=== PATIENT | female | born 1970 | race Caucasian/White ===

== ENCOUNTER 2022-06-21 11:28 | Outpatient (REF) | payer OTHER, SELFPAY ==
[2022-06-21 13:13] LABS: MANUAL DIFF FLAG NO
[2022-06-21 13:28] LABS: Basophils Absolute Auto 0.1 X10*3/uL (0.0-0.2); Basophils Percent Auto 0.8 % (0-2); Eosinophils Absolute Auto 0.1 X10*3/uL (0.0-0.4); Eosinophils Percent Auto 1.7 % (0-4); Hematocrit 44.4 % (37.0-47.0); Imm Gran Abs Auto 0.02 X10*3/uL (0.00-0.03); Imm Gran Pct Auto 0.3 % (0.0-0.4); Lymphocytes Absolute Auto 1.7 X10*3/uL (1.2-4.9); Lymphocytes Percent Auto 29.3 % (20-40); Mean Corpuscular HGB Conc 33.8 g/dl (31.0-35.0); Mean Corpuscular Hemoglobin 28.7 pg (27.0-33.0); Mean Corpuscular Volume 85.1 fL (80.0-98.0); Mean Platelet Volume 9.3 fL (9.4-12.3); Monocytes Absolute Auto 0.4 X10*3/uL (0.1-1.2); Monocytes Percent Auto 6.3 % (2-11); Neutrophils Absolute Auto 3.6 x10*3/uL (2.0-8.3); Neutrophils Percent Auto 61.6 % (45-73); Platelet Count 250 X10*3/uL (160-400); Red Blood Count 5.22 X10*6/uL (4.20-5.50); Red Cell Distribution Width 12.6 % (11.0-16.0); White Blood Count 5.9 X10*3/uL (4.8-10.8)
[2022-06-21 13:30] LABS: Appearance Urine Clear; Color Urine Yellow; Glucose Urine UA Negative (Negative); Leukocyte Esterase Urine Negative (Negative); Nitrite Urine Negative (Negative); PH 5.5 (5.0-8.0); Specific Gravity - Urine >= 1.030 (1.005-1.025); Urine Blood Negative (Negative); Urine Ketones Negative (Negative); Urine Protein Negative (Neg-Trace)
[2022-06-21 13:43] LABS: Alanine Aminotransferase 28 U/L (0-31); Albumin Level 4.6 g/dL (3.5-5.0); Alkaline Phosphatase 73 U/L (39-117); Anion Gap 19 (12-20); Aspartate Amino Transferase 29 U/L (5-31); Bilirubin Total 0.6 mg/dL (0.0-1.0); Blood Urea Nitrogen 15 mg/dL (9-16); C Reactive Protein 0.11 mg/dL (< or = 0.50); Calcium 9.3 mg/dL (8.4-10.2); Carbon Dioxide 21 mmol/L (22-29); Chloride 103 mmol/L (96-108); Estimated Glomerular Filt Rate > 60; Glucose Random 85 mg/dL (60-115); Sodium 139 mmol/L (135-145); Total Protein 7.8 g/dL (6.5-8.0); Uric Acid 3.4 mg/dL (2.4-5.7)
[2022-06-21 13:54] LABS: Rheumatoid Factor < 15.0 IU/mL (<15.0)
[2022-06-21 14:02] LABS: Creatinine Urine 151.58 mg/dL; Protein/Creatinine Ratio, Ur 0.05 (<0.2); Total Protein Urine Random 8 mg/dL (<12)
[2022-06-21 14:04] LABS: Ferritin 19 ng/mL (10-250); TSH reflex Free T4 1.46 uIU/mL (0.32-4.0)
[2022-06-21 14:11] LABS: Bacteria Urine None Seen (None Seen); Hyaline Casts Urine 0-2 /LPF (0-2); RBC Urine 0-2 /HPF (0-2); Squamous Epithelial Cell Urine 0-2 /HPF (0-2); WBC Urine 0-5 /HPF (0-5)
[2022-06-21 14:12] LABS: Erythrocyte Sedimentation Rate 5 MM/HR (0-20)
[2022-06-23 12:52] LABS: Calcium (PTHI) 9.6 mg/dL (8.6-10.2); PTHI 72 pg/mL (16-77)
[2022-06-24 08:02] LABS: HBS Num1 1.01 mIU/mL (0-7.99); HBc Num1 0.11 S/CO (0.00-0.79); HBsAGNum1 0.26 S/CO (0.00-0.99); HIV AB/AG Nonreactive (Nonreactive); HIV Num 1 0.06 S/CO (0.00-0.99); Hepatitis B Core Antibody Nonreactive (Nonreactive); Hepatitis B Surface Antigen Negative (Negative); ~HepC Num1 0.09 S/CO (0.00-0.79); ~Hepatitis B Surface Antibody NONREACTIVE (Nonreactive); ~Hepatitis C Antibody Nonreactive (Nonreactive)
[2022-06-24 14:52] LABS: Anti DNA DS Antibody <1 IU/mL; Anti-Centromere B Antibodies <1.0 NEG AI (<1.0 NEG); Antibody to SS-A Antigen <1.0 NEG AI (<1.0 NEG); Antibody to SS-B Antigen <1.0 NEG AI (<1.0 NEG); SM/Ribonucleoprotein Ab <1.0 NEG AI (<1.0 NEG); Smith Protein <1.0 NEG AI (<1.0 NEG)
[2022-06-24 16:33] LABS: Cyclic Citrullinated Peptide <16 UNITS
[2022-06-25 11:31] LABS: Complement C3 115 mg/dL (83-193)
[2022-06-25 21:12] LABS: IgA 270 mg/dL (47-310); IgG 1066 mg/dL (600-1640); IgM 167 mg/dL (50-300)
[2022-06-26 00:51] LABS: Prot Elec - Albumin 4.8 g/dL (3.8-4.8); Prot Elec - Alpha1 0.3 g/dL (0.2-0.3); Prot Elec - Alpha2 0.7 g/dL (0.5-0.9); Prot Elec - Beta 1 0.5 g/dL (0.4-0.6); Prot Elec - Beta 2 0.4 g/dL (0.2-0.5); Prot Elec - Gamma 1.1 g/dL (0.8-1.7); Prot Elec - Total Protein 7.8 g/dL (6.1-8.1)
[2022-06-26 07:20] LABS: Hepatitis A Antibody IgM 0.19 Index (0-0.79); ~Hepatitis A Antibody IgM Nonreactive (Nonreactive)
[2022-06-26 08:46] LABS: HLA B27 Negative (Negative)
[2022-06-27 05:37] LABS: Angiotensin Converting Enzyme 24 U/L (9-67)
[2022-06-30 12:47] LABS: Anti Nuclear Antibody Screen NEGATIVE (NEGATIVE)
== END 2022-06-21 11:29 | disposition home or self-care (01) ==
LOC: HO.10HDL 11:28
PROVIDERS: Visit Provider Student in an Organized Health Care Education/Training Program
DX: Z00.00 Encounter for general adult medical examination without abnormal findings (principal); Z11.59 Encounter for screening for other viral diseases; Z11.4 Encounter for screening for human immunodeficiency virus [HIV]; M25.541 Pain in joints of right hand; R23.1 Pallor
CPT/HCPCS: 36415; 80053; 81001; 82164; 82728; 82784; 83970; 84156; 84165; 84443; 84550; 85025; 85652; 86038; 86039; 86140; 86160; 86200; 86225; 86235; 86334; 86431; 86704; 86706; 86709; 86803; 86812; 87086; 87340; 87389

== ENCOUNTER 2022-11-16 10:16 | Outpatient (REF) | payer OTHER, SELFPAY ==
[2022-11-16 10:24] LABS: MANUAL DIFF FLAG NO
[2022-11-16 10:51] LABS: Basophils Percent Auto 0.6 % (0-2); Eosinophils Absolute Auto 0.1 X10*3/uL (0.0-0.4); Hematocrit 43.1 % (37.0-47.0); Hemoglobin 14.4 g/dl (12.0-16.0); Imm Gran Abs Auto 0.01 X10*3/uL (0.00-0.03); Imm Gran Pct Auto 0.1 % (0.0-0.4); Lymphocytes Absolute Auto 2.3 X10*3/uL (1.2-4.9); Lymphocytes Percent Auto 33.4 % (20-40); Mean Corpuscular HGB Conc 33.4 g/dl (31.0-35.0); Mean Corpuscular Hemoglobin 28.7 pg (27.0-33.0); Mean Corpuscular Volume 85.9 fL (80.0-98.0); Mean Platelet Volume 8.9 fL (9.4-12.3); Monocytes Absolute Auto 0.5 X10*3/uL (0.1-1.2); Monocytes Percent Auto 7.5 % (2-11); Neutrophils Absolute Auto 3.9 x10*3/uL (2.0-8.3); Neutrophils Percent Auto 56.4 % (45-73); Platelet Count 248 X10*3/uL (160-400); Red Blood Count 5.02 X10*6/uL (4.20-5.50); Red Cell Distribution Width 13.8 % (11.0-16.0); White Blood Count 6.8 X10*3/uL (4.8-10.8)
[2022-11-16 11:20] LABS: Alanine Aminotransferase 25 U/L (0-31); Albumin Level 4.5 g/dL (3.5-5.0); Alkaline Phosphatase 74 U/L (39-117); Anion Gap 12 (12-20); Aspartate Amino Transferase 18 U/L (5-31); Bilirubin Total 0.6 mg/dL (0.0-1.0); Blood Urea Nitrogen 13 mg/dL (9-16); C Reactive Protein < 0.10 mg/dL (< or = 0.50); Calcium 9.6 mg/dL (8.4-10.2); Carbon Dioxide 29 mmol/L (22-29); Chloride 101 mmol/L (96-108); Estimated Glomerular Filt Rate > 60; Glucose Random 90 mg/dL (60-115); Sodium 138 mmol/L (135-145); Total Protein 7.1 g/dL (6.5-8.0)
[2022-11-16 11:45] LABS: Erythrocyte Sedimentation Rate 5 MM/HR (0-20)
== END 2022-11-16 10:17 | disposition home or self-care (01) ==
LOC: HO.LAB 10:16
PROVIDERS: PCP Internal Medicine; Visit Provider Student in an Organized Health Care Education/Training Program
DX: Z79.899 Other long term (current) drug therapy (principal)
CPT/HCPCS: 36415; 80053; 85025; 85652; 86140

== ENCOUNTER → 2023-01-16 15:19 | Outpatient (BNVA) | payer OTHER, SELFPAY | PROVIDERS: PCP Internal Medicine; Visit Provider Student in an Organized Health Care Education/Training Program | DX: Z13.89 Encounter for screening for other disorder (principal) ==

== ENCOUNTER 2023-05-30 12:40 | Outpatient (REF) | payer OTHER, SELFPAY ==
[2023-05-30 13:07] LABS: MANUAL DIFF FLAG NO
[2023-05-30 13:34] LABS: Basophils Absolute Auto 0.1 X10*3/uL (0.0-0.2); Basophils Percent Auto 0.8 % (0-2); Eosinophils Absolute Auto 0.1 X10*3/uL (0.0-0.4); Eosinophils Percent Auto 1.4 % (0-4); Hematocrit 43.2 % (37.0-47.0); Hemoglobin 13.9 g/dl (12.0-16.0); Imm Gran Abs Auto 0.02 X10*3/uL (0.00-0.03); Imm Gran Pct Auto 0.3 % (0.0-0.4); Lymphocytes Absolute Auto 1.7 X10*3/uL (1.2-4.9); Lymphocytes Percent Auto 26.5 % (20-40); Mean Corpuscular HGB Conc 32.2 g/dl (31.0-35.0); Mean Corpuscular Hemoglobin 27.7 pg (27.0-33.0); Mean Corpuscular Volume 86.1 fL (80.0-98.0); Mean Platelet Volume 9.3 fL (9.4-12.3); Monocytes Absolute Auto 0.5 X10*3/uL (0.1-1.2); Monocytes Percent Auto 7.3 % (2-11); Neutrophils Absolute Auto 4.2 x10*3/uL (2.0-8.3); Neutrophils Percent Auto 63.7 % (45-73); Platelet Count 246 X10*3/uL (160-400); Red Blood Count 5.02 X10*6/uL (4.20-5.50); Red Cell Distribution Width 13.4 % (11.0-16.0); White Blood Count 6.6 X10*3/uL (4.8-10.8)
[2023-05-30 13:59] LABS: Alanine Aminotransferase 14 U/L (0-31); Albumin Level 4.4 g/dL (3.5-5.0); Alkaline Phosphatase 76 U/L (39-117); Anion Gap 16 (12-20); Aspartate Amino Transferase 14 U/L (5-31); Bilirubin Total 0.3 mg/dL (0.0-1.0); Blood Urea Nitrogen 15 mg/dL (9-16); C Reactive Protein < 0.10 mg/dL (< or = 0.50); Calcium 9.4 mg/dL (8.4-10.2); Carbon Dioxide 20 mmol/L (22-29); Chloride 105 mmol/L (96-108); Estimated Glomerular Filt Rate > 60; Glucose Random 90 mg/dL (60-115); Potassium 4.1 mmol/L (3.3-5.1); Sodium 137 mmol/L (135-145); Total Protein 7.3 g/dL (6.5-8.0)
[2023-05-30 14:30] LABS: Erythrocyte Sedimentation Rate 4 MM/HR (0-20)
== END 2023-05-30 12:41 | disposition home or self-care (01) ==
LOC: HO.10HDL 12:40
PROVIDERS: Visit Provider Student in an Organized Health Care Education/Training Program
DX: Z79.899 Other long term (current) drug therapy (principal)
CPT/HCPCS: 36415; 80053; 85025; 85652; 86140

== ENCOUNTER 2023-06-05 11:44 | Outpatient (AMB) | payer OTHER, SELFPAY ==
[2023-06-05 11:48] VITALS: BP 132/90; PULSE 102; TEMP 36.8; O2SAT 98; BMI 25.1
--- NOTE | 2023-06-05 11:48 | A.OFFVIS_ITS ---
Intake Vital Signs 06/05/23 11:48 Height 5 ft 5 in Weight 150 lb 9.211 oz BMI 25.1 BP 132/90 H Blood Pressure Location Rt brachial Position Sitting Pulse 102 H Pulse Source Pulse Oximeter Temp 98.2 F Temp Source Temporal Artery Scan Pulse Oximetry (%) 98 Oxygen Delivery Method Room Air Intake Visit Reasons: Rheumatoid Arthritis Intake Note: Pt presents in office for Rheumatoid Arthritis French Drawer Required: No Allergies Penicillins Adverse Reaction (Intermediate, Unverified 06/05/23 11:52) Swelling Medication List - Last Reconciled 06/05/23 by Vivi Becerril MD cetirizine (All Day Allergy (cetirizine)) 10 mg PO DAILY PRN dextroamphetamine-amphetamine 30 mg ER 1 cap PO DAILY erenumab-aooe (Aimovig Autoinjector) mg subcut .EVERY 28 DAYS folic acid 1 mg PO DAILY lamotrigine 200 mg PO DAILY methotrexate sodium 12.5 mg PO QWEEK [Tumeric PO DAILY] HPI HPI Comments History of Present Illness Details 52-year-old female with RA presents for follow-up. She is doing well overall. Tolerating methotrexate. Not reporting any side effects. Continues to have the same swelling over her right 3rd MCP, sometimes the swelling goes down when she takes turmeric. She denies any other joint pain or swelling. Denies any limitation of movement. Initial history: 51-year-old female with a past medical history of bipolar disorder, anxiety, migraines presents for evaluation of right hand pain and s welling. The condition started 4-5 months ago, she bumped her hand and then developed significant swelling on the dorsal aspect of her right hand 3rd MCP. She went to her PCP who prescribed prednisone course for about 10 days, the 1st few days helped the then it stopped helping. She had significant mood swings with steroids. She had x-rays and MRIs done for hands then went to see Orthopedic surgery. Orthopedic surgery recommended naproxen. Patient only took it sparingly. 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 Over the past year patient denies any history of pain in her hands in the morning, denies any significant morning stiffness. She has pain with extension of her right hand fingers. She denies any joint pain elsewhere, denies back pain, denies fevers, weight loss, blood or frothy urine, denies oral ulcers, denies urinary symptoms, denies UTI symptoms did, denies any unprotected sexual encounters [facility] Medical History Diabetes Dyslipidemia Hypertension Migraine Varicose vein of leg Surgical History H/O tubal ligation H/O wisdom tooth extraction History of 2 sections Hx of prior ablation treatment Family History Father Hypertension Brain aneurysm Myocardial infarction Mother Hypertension Diabetes Arthritis Social History Household Members: Children Alcohol intake: current Alcohol intake frequency: a few times a month Patient Tobacco Use Status: Former Tobacco user Quit Date: 30 years ago Current occupation: used to do [employer], currently a teacher Review of Systems [facility] [place] Denies arthralgias Physical Exam Vital Signs: Last Vital Signs Temp 98.2 F 06/05/23 11:48 Pulse 102 H 06/05/23 11:48 BP 132/90 H 06/05/23 11:48 Pulse Ox 98 06/05/23 11:48 Oxygen Delivery Method Room Air 06/05/23 11:48 BMI result Body Mass Index 25.1 Const General: cooperative, healthy appearing, comfortable and no acute distress Nutritional Appearance: average body habitus and well nourished HEENT Other: No oral ulcers, moist oral mucosa Head: Yes normal to inspection Resp Effort & Inspection: normal respiratory effort and able to speak in complete sentences Auscultation: clear to auscultation bilaterally Cardio Heart sounds: S1 normal heart sound present and S2 normal heart sound present GI Inspection: Yes normal to inspection Extrem Other: swelling of right 3rd MCP, without warmth or tenderness, no nail pitting, normal nailfold capillaroscopy, normal range of motion of all her joints Results Reviewed Results Reviewed: Right wrist MRI 03/2022? Impression: severe cartilage loss within the radiocarpal joint resulting in bone on bone articulation.?? Non corticated erosions within the radial styloid process and distal scaphoid which may represent crystalline arthropathy or inflammatory arthritis in the proper clinical setting Ulnar-sided ulnar abutment, complex TFCC tear, suspected low no triquetral ligament tear and volar sided scapholunate ligament tear resulting in VISI alignment Assessment & Plan Assessment & Plan (1) Seronegative rheumatoid arthritis: Comment: seronegative dx 08/24 MTX started 08/24 Code(s): M06.00 - Rheumatoid arthritis without rheumatoid factor, unspecified site Plan: 52 year-old female with seronegative RA presents for follow-up. Patient is doing well overall with no active synovitis on methotrexate 15 mg weekly plus folic acid daily. Reduce methotrexate to 12.5 mg once weekly and folic acid daily. Advised patient to call the office if she develops any joint pain or swelling Labs before next visit in 6 month (2) Methotrexate, shelter, current use: Code(s): Z79.631 - skilled nursing (current) use of antimetabolite agent Plan: Side effects of methotrexate were discussed with the patient in detail including oral ulcers, elevated LFTs, abdominal discomfort, and possible pancytopenia is. Will monitor patient for side effects with frequent lab work. Advised patient to take folic acid daily to prevent complications of methotrexate. Patient only has 2 alcoholic beverages a month. Plan I spent 19 minutes reviewing patient's chart, evaluating patient, ordering diagnostic workup, counseling patient and documenting in the chart Orders: Orders Comprehensive Met. Panel 6 Months Z79.631 - skilled nursing (current) use of antimetabolite agent C Reactive Protein 6 Months Z79.631 - intermediate accountant (current) use of antimetabolite agent Complete Blood Count Auto Diff 6 Months Z79.631 - intermediate accountant (current) use of antimetabolite agent Erythrocyte Sedimentation Rate 6 Months Z79.631 - intermediate accountant (current) use of antimetabolite agent Coding Level of Care Code Est Pt Level 3 (34241) Diagnoses Seronegative rheumatoid arthritis M06.00 Methotrexate, shelter, current use Z79.631
== END 2023-06-05 12:07 | disposition home or self-care (01) ==
PROVIDERS: PCP Internal Medicine; Visit Provider Student in an Organized Health Care Education/Training Program
DX: M06.00 Rheumatoid arthritis without rheumatoid factor, unspecified site (principal); Z79.631 Long term (current) use of antimetabolite agent
CPT/HCPCS: 99213

== ENCOUNTER → 2023-06-05 11:44 | Outpatient (BNVA) | payer OTHER, SELFPAY | PROVIDERS: PCP Internal Medicine; Visit Provider Student in an Organized Health Care Education/Training Program ==

== ENCOUNTER 2023-12-24 11:14 | Outpatient (REF) | payer OTHER, SELFPAY ==
[2023-12-24 13:06] LABS: MANUAL DIFF FLAG NO
[2023-12-24 13:09] LABS: Basophils Percent Auto 0.8 % (0-2); Eosinophils Absolute Auto 0.1 X10*3/uL (0.0-0.4); Eosinophils Percent Auto 1.9 % (0-4); Hemoglobin 13.4 g/dl (12.0-16.0); Imm Gran Abs Auto 0.01 X10*3/uL (0.00-0.03); Imm Gran Pct Auto 0.2 % (0.0-0.4); Lymphocytes Absolute Auto 1.9 X10*3/uL (1.2-4.9); Lymphocytes Percent Auto 35.3 % (20-40); Mean Corpuscular HGB Conc 32.7 g/dl (31.0-35.0); Mean Corpuscular Hemoglobin 26.3 pg (27.0-33.0); Mean Corpuscular Volume 80.6 fL (80.0-98.0); Mean Platelet Volume 9.1 fL (9.4-12.3); Monocytes Absolute Auto 0.5 X10*3/uL (0.1-1.2); Monocytes Percent Auto 9.5 % (2-11); Neutrophils Absolute Auto 2.8 x10*3/uL (2.0-8.3); Neutrophils Percent Auto 52.3 % (45-73); Platelet Count 222 X10*3/uL (160-400); Red Blood Count 5.09 X10*6/uL (4.20-5.50); Red Cell Distribution Width 15.2 % (11.0-16.0); White Blood Count 5.3 X10*3/uL (4.8-10.8)
[2023-12-24 13:22] LABS: Alanine Aminotransferase 22 U/L (0-31); Albumin Level 4.3 g/dL (3.5-5.0); Alkaline Phosphatase 83 U/L (39-117); Anion Gap 11 (12-20); Aspartate Amino Transferase 22 U/L (5-31); Bilirubin Total 0.4 mg/dL (0.0-1.0); Blood Urea Nitrogen 13 mg/dL (9-16); C Reactive Protein 0.46 mg/dL (< or = 0.50); Calcium 9.2 mg/dL (8.4-10.2); Carbon Dioxide 28 mmol/L (22-29); Chloride 103 mmol/L (96-108); Estimated Glomerular Filt Rate > 60; Glucose Random 93 mg/dL (60-115); Sodium 138 mmol/L (135-145); Total Protein 7.4 g/dL (6.5-8.0)
[2023-12-24 13:50] LABS: Erythrocyte Sedimentation Rate 11 MM/HR (0-20)
== END 2023-12-24 11:15 | disposition home or self-care (01) ==
LOC: HO.10HDL 11:14
PROVIDERS: Visit Provider Student in an Organized Health Care Education/Training Program
DX: Z11.51 Encounter for screening for human papillomavirus (HPV) (principal); Z79.631 Long term (current) use of antimetabolite agent
CPT/HCPCS: 36415; 80053; 85025; 85652; 86140

== ENCOUNTER 2024-02-11 14:13 | Outpatient (AMB) | payer OTHER, SELFPAY ==
--- NOTE | 2024-02-11 14:18 | A.OFFVIS_ITS ---
Intake Vital Signs 02/11/24 14:19 Height 5 ft 5 in Weight 150 lb 5.684 oz BMI 25.0 BP 136/84 Blood Pressure Location Rt brachial Position Sitting Pulse 94 Pulse Source Pulse Oximeter Pulse Oximetry (%) 98 Oxygen Delivery Method Room Air Intake Visit Reasons: RA Intake Note: Patient last seen 06/05/23 presents today for follow up and test results. Rigging Engineer Required: No Accompanied by: Self / Same As Patient Allergies Penicillins Adverse Reaction (Intermediate, Unverified 02/11/24 14:21) Swelling Medication List - Last Reconciled 02/11/24 by Vivi Becerril MD cetirizine (All Day Allergy (cetirizine)) 10 mg PO DAILY PRN dextroamphetamine-amphetamine 30 mg ER 1 cap PO DAILY erenumab-aooe (Aimovig Autoinjector) mg subcut .EVERY 28 DAYS folic acid 1 mg PO DAILY lamotrigine 50 mg PO DAILY lamotrigine 200 mg PO .qhs methotrexate sodium 12.5 mg (5 x 2.5 mg) PO QWEEK [Tumeric PO DAILY] HPI HPI Comments History of Present Illness Details 53-year-old female with seronegative RA presents for follow-up. She states that she has been doing fairly well overall. She states that she has noticed slightly more aching in her right hand and wrist. Usually worse with manual activity at work. She stated that she felt that the swelling on her right 3rd MCP and aching was better when she was taking 6 tabs of methotrexate weekly. Initial history: 51-year-old female with a past medical history of bipolar disorder, anxiety, migraines presents for evaluation of right hand pain and swelling. The condition started 4-5 months ago, she bumped her hand and then developed significant swelling on the dorsal aspect of her right hand 3rd MCP. She went to her PCP who prescribed prednisone course for about 10 days, the 1st few days helped the then it stopped helping. She had significant mood swings with steroids. She had x-rays and MRIs done for hands then went to see Orthopedic surgery. Orthopedic surgery recommended naproxen. Patient only took it sparingly. 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 Over the past year patient denies any history of pain in her hands in the morning, denies any significant morning stiffness. She has pain with extension of her right hand fingers. She denies any joint pain elsewhere, denies back pain, denies fevers, weight loss, blood or frothy urine, denies oral ulcers, denies urinary symptoms, denies UTI symptoms did, denies any unprotected sexual encounters [facility] Medical History Varicose vein of leg Migraine Dyslipidemia Hypertension Diabetes Surgical History H/O tubal ligation Hx of prior ablation treatment H/O wisdom tooth extraction History of 2 sections Family History Father Hypertension Brain aneurysm Myocardial infarction Mother Hypertension Diabetes Arthritis Social History Household Members: Children Alcohol intake: current Alcohol intake frequency: a few times a month Patient Tobacco Use Status: Former Tobacco user Quit Date: 30 years ago 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[id number], currently a teacher Review of Systems Musc Reports joint swelling and Reports stiffness Physical Exam Vital Signs: Last Vital Signs Pulse 94 02/11/24 14:19 BP 136/84 02/11/24 14:19 Pulse Ox 98 02/11/24 14:19 Oxygen Delivery Method Room Air 02/11/24 14:19 BMI result Body Mass Index 25.0 Const General: cooperative, healthy appearing, comfortable and no acute distress Nutritional Appearance: average body habitus and well nourished HEENT Other: No oral ulcers, moist oral mucosa Head: Yes normal to inspection Resp Effort & Inspection: normal respiratory effort and able to speak in complete sentences Auscultation: clear to auscultation bilaterally Cardio Heart sounds: S1 normal heart sound present and S2 normal heart sound present GI Inspection: Yes normal to inspection Extrem Other: Nontender swelling of right 3rd MCP, without warmth or tenderness, no nail pitting, normal nailfold capillaroscopy, Limited range of motion of right wrist Negative Tinel sign Negative Phalen's test Results Reviewed Results Reviewed: Right wrist MRI 03/2022? Impression: severe cartilage loss within the radiocarpal joint resulting in bone on bone articulation.?? Non corticated erosions within the radial styloid process and distal scaphoid which may represent crystalline arthropathy or inflammatory arthritis in the proper clinical setting Ulnar-sided ulnar abutment, complex TFCC tear, suspected low no triquetral ligament tear and volar sided scapholunate ligament tear resulting in VISI alignment Assessment & Plan Assessment & Plan (1) Seronegative rheumatoid arthritis: Comment: seronegative dx 08/24 MTX started 08/24 effective Code(s): M06.00 - Rheumatoid arthritis without rheumatoid factor, unspecified site Plan: 53 year-old female with seronegative RA presents for follow-up. Patient states that since lowering methotrexate from 15 mg weekly she has been having more frequent right wrist and hand achiness and increased swelling right 3rd MCP. Increase methotrexate to 15 mg weekly Continue folic acid 1 mg daily Labs before next visit in 4 month (2) Methotrexate, prison, current use: Code(s): Z79.631 - shelter (current) use of antimetabolite agent Plan: Side effects of methotrexate were discussed with the patient in detail including oral ulcers, elevated LFTs, abdominal discomfort, and possible pancytopenia is. Will monitor patient for side effects with frequent lab work. Advised patient to take folic acid daily to prevent complications of methotrexate. Patient only has 2 alcoholic beverages a month. Plan I spent 25 minutes reviewing patient's chart, evaluating patient, ordering diagnostic workup, counseling patient and documenting in the chart Orders: Orders Comprehensive Met. Panel 4 Months M06.00 - Rheumatoid arthritis without rheumatoid factor, unspecified site, Z79.631 - shelter (current) use of antimetabolite agent C Reactive Protein 4 Months M06.00 - Rheumatoid arthritis without rheumatoid factor, unspecified site, Z79.631 - shelter (current) use of antimetabolite agent Erythrocyte Sedimentation Rate 4 Months M06.00 - Rheumatoid arthritis without rheumatoid factor, unspecified site, Z79.631 - supervisor intermediates (current) use of antimetabolite agent Complete Blood Count Auto Diff 4 Months M06.00 - Rheumatoid arthritis without rheumatoid factor, unspecified site, Z79.631 - supervisor intermediates (current) use of antimetabolite agent Medications: Changed From methotrexate sodium 12.5 mg (5 x 2.5 mg) PO QWEEK 60 tabs 0RF M06.00 - Rheumatoid arthritis without rheumatoid factor, unspecified site To methotrexate sodium 15 mg (6 x 2.5 mg) PO QWEEK 96 tabs 0RF M06.00 - Rheumatoid arthritis without rheumatoid factor, unspecified site Refilled folic acid 1 mg PO DAILY 90 tabs 1RF Coding Level of Care Code Est Pt Level 4 (62954) Diagnoses Seronegative rheumatoid arthritis M06.00 Methotrexate, parts counterman, current use Z79.631
[2024-02-11 14:19] VITALS: BP 136/84; PULSE 94; O2SAT 98; BMI 25.0
== END 2024-02-11 14:47 | disposition home or self-care (01) ==
PROVIDERS: PCP Internal Medicine; Visit Provider Student in an Organized Health Care Education/Training Program
DX: M06.00 Rheumatoid arthritis without rheumatoid factor, unspecified site (principal); Z79.631 Long term (current) use of antimetabolite agent
CPT/HCPCS: 99214

== ENCOUNTER → 2024-02-11 14:13 | Outpatient (BNVA) | payer OTHER, SELFPAY | PROVIDERS: PCP Internal Medicine; Visit Provider Student in an Organized Health Care Education/Training Program ==

== ENCOUNTER 2024-06-07 12:44 | Outpatient (REF) | payer OTHER, SELFPAY ==
[2024-06-07 13:16] LABS: MANUAL DIFF FLAG NO
[2024-06-07 13:21] LABS: Basophils Absolute Auto 0.1 X10*3/uL (0.0-0.2); Eosinophils Absolute Auto 0.1 X10*3/uL (0.0-0.4); Eosinophils Percent Auto 2.1 % (0-4); Hematocrit 37.5 % (37.0-47.0); Hemoglobin 11.5 g/dl (12.0-16.0); Imm Gran Abs Auto 0.02 X10*3/uL (0.00-0.03); Imm Gran Pct Auto 0.4 % (0.0-0.4); Lymphocytes Absolute Auto 1.4 X10*3/uL (1.2-4.9); Lymphocytes Percent Auto 28.6 % (20-40); Mean Corpuscular HGB Conc 30.7 g/dl (31.0-35.0); Mean Corpuscular Volume 75.2 fL (80.0-98.0); Mean Platelet Volume 9.1 fL (9.4-12.3); Monocytes Absolute Auto 0.4 X10*3/uL (0.1-1.2); Monocytes Percent Auto 7.7 % (2-11); Neutrophils Absolute Auto 2.9 x10*3/uL (2.0-8.3); Neutrophils Percent Auto 60.2 % (45-73); Platelet Count 266 X10*3/uL (160-400); Red Blood Count 4.99 X10*6/uL (4.20-5.50); White Blood Count 4.8 X10*3/uL (4.8-10.8)
[2024-06-07 13:52] LABS: Alanine Aminotransferase 23 U/L (0-31); Albumin Level 4.5 g/dL (3.5-5.0); Alkaline Phosphatase 89 U/L (39-117); Anion Gap 14 (12-20); Aspartate Amino Transferase 22 U/L (5-31); Bilirubin Total 0.5 mg/dL (0.0-1.0); Blood Urea Nitrogen 17 mg/dL (9-16); C Reactive Protein 0.13 mg/dL (< or = 0.50); Calcium 10.3 mg/dL (8.4-10.2); Carbon Dioxide 27 mmol/L (22-29); Chloride 102 mmol/L (96-108); Estimated Glomerular Filt Rate > 60; Glucose Random 102 mg/dL (60-115); Potassium 3.6 mmol/L (3.3-5.1); Sodium 139 mmol/L (135-145); Total Protein 7.5 g/dL (6.5-8.0)
[2024-06-07 14:06] LABS: Erythrocyte Sedimentation Rate 7 MM/HR (0-20)
== END 2024-06-07 12:45 | disposition home or self-care (01) ==
LOC: HO.10HDL 12:44
PROVIDERS: Visit Provider Student in an Organized Health Care Education/Training Program
DX: M06.00 Rheumatoid arthritis without rheumatoid factor, unspecified site (principal); Z79.631 Long term (current) use of antimetabolite agent
CPT/HCPCS: 36415; 80053; 85025; 85652; 86140

== ENCOUNTER 2024-06-09 10:00 | Outpatient (AMB) | payer OTHER, SELFPAY ==
[2024-06-09 10:03] VITALS: BP 132/70; PULSE 83; O2SAT 98; BMI 24.9
--- NOTE | 2024-06-09 10:03 | MHC.OFFVIS ---
Vital Signs 06/09/24 10:03 Height 5 ft 5 in Weight 149 lb 14.629 oz BMI 24.9 BP 132/70 Blood Pressure Location Lt brachial Position Sitting Pulse 83 Pulse Source Pulse Oximeter Pulse Oximetry (%) 98 Oxygen Delivery Method Room Air Intake Visit Reasons: RA Intake Note: Patient last seen by Doctor Jone on 02/11/24. Presents today for RA follow up and test results. Allergies Penicillins Adverse Reaction (Intermediate, Unverified 06/09/24 10:06) Swelling Medication List - Last Reconciled 06/09/24 by Vivi Becerril MD cetirizine (All Day Allergy (cetirizine)) 10 mg PO DAILY PRN dextroamphetamine-amphetamine 30 mg ER 1 cap PO DAILY erenumab-aooe (Aimovig Autoinjector) mg subcut .EVERY 28 DAYS folic acid 1 mg PO DAILY lamotrigine 50 mg PO DAILY lamotrigine 200 mg PO .qhs methotrexate sodium 15 mg (6 x 2.5 mg) PO QWEEK [Tumeric PO DAILY] HPI Comments Details: 53-year-old female with seronegative RA presents for follow-up. She states that she has been doing fairly well overall. Remains on methotrexate 15 mg weekly plus folic acid 1 mg daily. She states that she gets some aching and minimal swelling of her right hand, wrists especially the right 3rd MCP with repetitive activity. Initial history: 51-year-old female with a past medical history of bipolar disorder, anxiety, migraines presents for evaluation of right hand pain and swelling. The condition started 4-5 months ago, she bumped her hand and then developed significant swelling on the dorsal aspect of her right hand 3rd MCP. She went to her PCP who prescribed prednisone course for about 10 days, the 1st few days helped the then it stopped helping. She had significant mood swings with steroids. She had x-rays and MRIs done for hands then went to see Orthopedic surgery. Orthopedic surgery recommended naproxen. Patient only took it sparingly. 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 Over the past year patient denies any history of pain in her hands in the morning, denies any significant morning stiffness. She has pain with extension of her right hand fingers. She denies any joint pain elsewhere, denies back pain, denies fevers, weight loss, blood or frothy urine, denies oral ulcers, denies urinary symptoms, denies UTI symptoms did, denies any unprotected sexual encounters [facility] Medical History Varicose vein of leg Migraine Dyslipidemia Hypertension Diabetes Surgical History H/O tubal ligation Hx of prior ablation treatment H/O wisdom tooth extraction History of 2 sections Family History Father Hypertension Brain aneurysm Myocardial infarction Mother Hypertension Diabetes Arthritis Social History Household Members: Children Alcohol intake: current Alcohol intake frequency: a few times a month Patient Tobacco Use Status: Former Tobacco user Current occupation: used to do [employer], currently a teacher Female Reproductive History Menstrual Total pregnancies: 2 Review of Systems Musc Reports joint swelling and Reports stiffness Physical Exam Vital Signs: Last Vital Signs Pulse 83 06/09/24 10:03 BP 132/70 06/09/24 10:03 Pulse Ox 98 06/09/24 10:03 Oxygen Delivery Method Room Air 06/09/24 10:03 BMI result Body Mass Index 24.9 Const General: cooperative, healthy appearing, comfortable and no acute distress Nutritional Appearance: average body habitus and well nourished HEENT Other: No oral ulcers, moist oral mucosa Head: Yes normal to inspection Resp Effort & Inspection: normal respiratory effort and able to speak in complete sentences Auscultation: clear to auscultation bilaterally Cardio Heart sounds: S1 normal heart sound present and S2 normal heart sound present GI Inspection: Yes normal to inspection Extrem Other: Nontender swelling of right 3rd MCP, without warmth or tenderness, no nail pitting, normal nailfold capillaroscopy, No knee pain with flexion-extension bilaterally Slightly Limited range of motion of right wrist Negative Tinel sign Negative Phalen's test Results Reviewed Results Reviewed: Right wrist MRI 03/2022? Impression: severe cartilage loss within the radiocarpal joint resulting in bone on bone articulation.?? Non corticated erosions within the radial styloid process and distal scaphoid which may represent crystalline arthropathy or inflammatory arthritis in the proper clinical setting Ulnar-sided ulnar abutment, complex TFCC tear, suspected low no triquetral ligament tear and volar sided scapholunate ligament tear resulting in VISI alignment Assessment & Plan Assessment & Plan (1) Seronegative rheumatoid arthritis: Comment: seronegative dx 08/24 MTX started 08/24 effective Code(s): M06.00 - Rheumatoid arthritis without rheumatoid factor, unspecified site Category: Medical Plan: 53 year-old female with seronegative RA presents for follow-up. On methotrexate 15 mg weekly plus folic acid 1 mg daily. Doing well overall with no active synovitis Continue methotrexate to 15 mg weekly Continue folic acid 1 mg daily Labs in 3 months and before next visit in 6 months (2) Methotrexate, long term acute care registered nurse, current use: Code(s): Z79.631 - long term acute care registered nurse (current) use of antimetabolite agent Category: Medical Plan: Side effects of methotrexate were discussed with the patient in detail including oral ulcers, elevated LFTs, abdominal discomfort, and possible pancytopenia is. Will monitor patient for side effects with frequent lab work. Advised patient to take folic acid daily to prevent complications of methotrexate. Patient only has 2 alcoholic beverages a month. Plan I spent 25 minutes reviewing patient's chart, evaluating patient, ordering diagnostic workup, counseling patient and documenting in the chart Orders: Orders Comprehensive Met. Panel 3 Months M06.00 - Rheumatoid arthritis without rheumatoid factor, unspecified site, Z79.631 - long term acute care registered nurse (current) use of antimetabolite agent Erythrocyte Sedimentation Rate 3 Months M06.00 - Rheumatoid arthritis without rheumatoid factor, unspecified site, Z79.631 - long term acute care registered nurse (current) use of antimetabolite agent Complete Blood Count Auto Diff 6 Months M06.00 - Rheumatoid arthritis without rheumatoid factor, unspecified site, Z79.631 - snf (current) use of antimetabolite agent C Reactive Protein 6 Months M06.00 - Rheumatoid arthritis without rheumatoid factor, unspecified site, Z79.631 - long term acute care registered nurse (current) use of antimetabolite agent Erythrocyte Sedimentation Rate 6 Months M06.00 - Rheumatoid arthritis without rheumatoid factor, unspecified site, Z79.631 - snf (current) use of antimetabolite agent Complete Blood Count Auto Diff 3 Months M06.00 - Rheumatoid arthritis without rheumatoid factor, unspecified site, Z79.631 - long term acute care registered nurse (current) use of antimetabolite agent C Reactive Protein 3 Months M06.00 - Rheumatoid arthritis without rheumatoid factor, unspecified site, Z79.631 - snf (current) use of antimetabolite agent Comprehensive Met. Panel 6 Months M06.00 - Rheumatoid arthritis without rheumatoid factor, unspecified site, Z79.631 - snf (current) use of antimetabolite agent Medications: Refilled methotrexate sodium 15 mg (6 x 2.5 mg) PO QWEEK 78 tabs 0RF M06.00 - Rheumatoid arthritis without rheumatoid factor, unspecified site folic acid 1 mg PO DAILY 90 tabs 1RF Coding Level of Care Code Est Pt Level 4 (73678) Diagnoses Seronegative rheumatoid arthritis M06.00 Methotrexate, long term acute care registered nurse, current use Z79.63
== END 2024-06-09 10:22 | disposition home or self-care (01) ==
PROVIDERS: PCP Internal Medicine; Visit Provider Student in an Organized Health Care Education/Training Program
DX: M06.00 Rheumatoid arthritis without rheumatoid factor, unspecified site (principal); Z79.631 Long term (current) use of antimetabolite agent
CPT/HCPCS: 99214

== ENCOUNTER → 2024-06-09 10:00 | Outpatient (BNVA) | payer OTHER, SELFPAY | PROVIDERS: PCP Internal Medicine; Visit Provider Student in an Organized Health Care Education/Training Program ==